=== PATIENT | female | born 1945 | race Caucasian/White ===

== ENCOUNTER 2016-11-20 08:07 | Day surgery (SDC) | payer MEDICARE, BC ==
[~2016-11-20] VITALS: Ht 157.5 cm; Wt 53.5 kg
[~2016-11-20 08:07] MED LIST: AMBIEN 10MG10 MG PO; COZAAR100 MG PO; DALIRESP500 MCG PO; INDERAL LA120 MG PO; K-DUR 10 MEQ T10 MEQ PO; OXYGEN; PREDNISONE10 MG PO; PROAIR HFA0.09 MG/AC IH; PROPRANOLOL ER PO; RT ADVAIR 228 DISKUS IH; SPIRIVA RE2.5 MCG/Ac IH; TOPAMAX 25MG25 M1 PO
[2016-11-20 09:12] VITALS: BP 118/71; PULSE 100; TEMP 98.4
[2016-11-20 10:15] VITALS: BP 124/64; PULSE 92; TEMP 98.3
[2016-11-20] MEDS ORDERED: DIFLUCAN 100MG100 MG PO (10:29)
[2016-11-20 10:30] VITALS: BP 138/66; PULSE 91
[2016-11-20 10:45] VITALS: BP 129/68; PULSE 88
== END 2016-11-20 11:00 | disposition home or self-care (01) ==
LOC: SDCO 08:07
DX: R06.02 Shortness of breath (principal); R09.89 Other specified symptoms and signs involving the circulatory and respiratory systems; R05 Cough; J44.1 Chronic obstructive pulmonary disease with (acute) exacerbation; I10 Essential (primary) hypertension; F17.200 Nicotine dependence, unspecified, uncomplicated
CPT/HCPCS: J2704

== ENCOUNTER → 2018-08-24 | Outpatient (CLI) | payer MEDICARE, BC ==
[~2018-08-24] MED LIST changes: +DIFLUCAN 100MG100 MG PO
== END ==
LOC: COL.RAD 09:32
DX: R19.00 Intra-abdominal and pelvic swelling, mass and lump, unspecified site (principal)

== ENCOUNTER → 2018-09-30 | Outpatient (CLI) | payer MEDICARE, BC | LOC: COL.RAD 09-16 11:00 | DX: N94.9 Unspecified condition associated with female genital organs and menstrual cycle (principal); R19.07 Generalized intra-abdominal and pelvic swelling, mass and lump | CPT/HCPCS: Q9967 ==

== ENCOUNTER 2018-10-09 13:37 | Outpatient (CLI) | payer MEDICARE, BC ==
[2018-10-09] VITALS (12 sets, daily range): BP systolic 118–149; BP diastolic 49–78; PULSE 80–86
[~2018-10-09] VITALS: Ht 157.5 cm; Wt 48.0 kg
== END 2018-10-09 17:45 | disposition home or self-care (01) ==
LOC: EUO 13:37
DX: N32.1 Vesicointestinal fistula (principal)
CPT/HCPCS: J2250; J3010

== ENCOUNTER → 2018-10-16 | Outpatient (CLI) | payer MEDICARE, BC | LOC: COL.RAD 07:40 | DX: K57.20 Diverticulitis of large intestine with perforation and abscess without bleeding (principal); S22.080A Wedge compression fracture of T11-T12 vertebra, initial encounter for closed fracture; Z90.49 Acquired absence of other specified parts of digestive tract; Z96.89 Presence of other specified functional implants | CPT/HCPCS: Q9967 ==

== ENCOUNTER → 2018-11-03 | Outpatient (CLI) | payer MEDICARE, BC | LOC: COL.RAD 13:03 | DX: K57.20 Diverticulitis of large intestine with perforation and abscess without bleeding (principal); N32.1 Vesicointestinal fistula; Z87.81 Personal history of (healed) traumatic fracture; Z90.710 Acquired absence of both cervix and uterus; Z96.89 Presence of other specified functional implants | CPT/HCPCS: Q9967 ==

== ENCOUNTER 2019-03-02 09:24 | Outpatient (CLI) | payer MEDICARE, BC ==
[2019-03-02] VITALS (16 sets, daily range): BP systolic 144–176; BP diastolic 74–104; PULSE 56–72; TEMP 97.8
[~2019-03-02] VITALS: Ht 157.5 cm; Wt 48.6 kg
[~2019-03-02 09:24] MED LIST changes: +CEPHALEXIN500 M1 PO; +NORCO 325 MG-51 TAB PO
--- NOTE | 2019-03-02 10:16 | NUR ---
informed dr gan of pt's tremors and bp
--- NOTE | 2019-03-02 10:55 | NUR ---
PT BROUGHT INTO ROOM, PLACED ON TABLE AND MONITORING EQUIPMENT PLACED. IMAGES DONE. DR ROJAS HERE, TIME OUT DONE.
--- NOTE | 2019-03-02 11:05 | NUR ---
VERSED 0.5 MG AND FENTANYL 25 MCG GIVEN AT [address] ROJAS
--- NOTE | 2019-03-02 11:20 | NUR ---
PROCEDURE COMPLETED. SAMPLES PLACED INTO FORMALIN. PT UNHOOKED FROM MONITORING EQUIPMENT AND TRANSFERED TO CART.
--- NOTE | 2019-03-02 11:25 | NUR ---
Pt to EU 9 per cart s/p lung bx. Pt resting well, son at bedside.
--- NOTE | 2019-03-02 11:40 | NUR ---
Pt wears O2 at 2L per NC PRN at home. Pt O2 sat 85% on room air. O2 2L per NC placed on pt.
--- NOTE | 2019-03-02 14:00 | NUR ---
Pt has ambulated, voided and lina PO intake s n/v. PIV removed from L AC with catheter intact.
--- NOTE | 2019-03-02 14:05 | NUR ---
Pt discharged per w/c by nurse with son.
== END 2019-03-02 14:43 | disposition home or self-care (01) ==
LOC: COL.RAD 09:24
DX: R91.8 Other nonspecific abnormal finding of lung field (principal)

== ENCOUNTER 2019-10-05 11:28 | Inpatient (IN) | payer MEDICARE, BC ==
[~2019-10-05] VITALS: Ht 157.5 cm; Wt 52.0 kg
[2019-10-05 12:19] LABS: BASO # 0.1 (0.0-0.2); BASO % 0.7 % (0.0-2.0); EOS # 0.2 (0.0-0.7); EOS % 1.7 % (0-4.0); GRAN # 6.8 (1.4-6.5); GRAN % 70.8 % (42.2-75.2); HEMATOCRIT 44.2 % (37.0-47.0); HEMOGLOBIN 14.1 g/dl (12.5-16.0); LYMPH # 1.8 (1.2-3.4); LYMPH % 18.3 % (20.0-51.0); MEAN CELL VOLUME 101 fl (80.0-100.0); MEAN CORPUSCULAR HEMOGLOBIN 32 pg (27.0-31.0); MEAN CORPUSCULAR HGB CONC 32 g/dl (33.0-37.0); MEAN PLATELET VOLUME 8.6 fl (7.4-10.4); MONO # 0.8 (0.1-0.6); MONO % 8.1 % (1.7-9.3); PLATELET COUNT 250 K/mm3 (130-400); RED BLOOD COUNT 4.39 M/mm3 (4.10-5.30); REDCELL DISTRIBUTION WIDTH-CV 15.9 % (11.5-14.5)
[2019-10-05 12:30] LABS: INR 0.9 (0.8-3.0); PROTHROMBIN TIME 10.4 SECONDS (9.7-12.8)
[2019-10-05 12:34] LABS: ALANINE AMINOTRANSFERASE 12 U/L (9-52); ALBUMIN 4.1 gm/dL (3.5-5.0); ALKALINE PHOSPHATASE 103 U/L (50-136); ANION GAP 10 mmol/L (7-16); AST,SGOT 28 U/L (15-37); BILIRUBIN,TOTAL 0.5 mg/dL (0.0-1.0); BLOOD UREA NITROGEN 17 mg/dL (7-17); CARBON DIOXIDE 30 mmol/L (22-30); CHLORIDE 100 mmol/L (98-107); CREATININE, serum 0.81 (0.52-1.25); GLUCOSE 96 mg/dL (74-106); POTASSIUM 4.2 mmol/L (3.4-5.0); SODIUM 140 mmol/L (137-145); TOTAL PROTEIN 7.7 gm/dL (6.4-8.2)
[2019-10-05 12:45] LABS: TROPONIN-I < 0.012 ng/mL (0.000-0.035)
[2019-10-05 13:24] LABS: COLLECTION METHOD CLEAN CATCH
[2019-10-05 13:30] LABS: PH 7 (5-8); SQUAMOUS EPITHELIAL 0-2 /hpf; URINE APPEARANCE Clear; URINE BACTERIA None Seen /hpf; URINE BILIRUBIN Negative (NEGATIVE); URINE BLOOD Negative (NEGATIVE); URINE COLOR Straw; URINE GLUCOSE Negative (NEGATIVE); URINE KETONE Negative (NEGATIVE); URINE LEUKOCYTE ESTERASE Trace (NEGATIVE); URINE NITRATE Negative (NEGATIVE); URINE PROTEIN(semi-quant) Negative (NEGATIVE); URINE RBC 0-2 /hpf; URINE UROBILINOGEN Negative (NEGATIVE)
--- NOTE | 2019-10-05 15:16 | NUR ---
barn worker met with patient and her granddaughter, Miriam #[phone], in the emergency room and provided options for life alerts. Patient lives alone and has not utilized any outside agency for assistance. Patient states that her son works in [employer] and that her support person, to discuss discharge planning, is Miriam. Case management will follow and meet with patient and assist with securing a safe discharge plan.
[2019-10-05] MEDS ORDERED: MULTI VITAMINS1 TAB PO (18:01)
[2019-10-05 18:17] VITALS: BP 159/80; PULSE 65; TEMP 97.7
[2019-10-05 18:18] VITALS: BP 159/80; PULSE 65; TEMP 97.7
--- NOTE | 2019-10-05 19:14 | NUR ---
Patient resting in bed. at the bedside. Denies pain and discomfort. Reporting some dizziness. Nursing staff instructed patient to call for assistance with ambulation. VSS. IV CDI. No further needs expressed from patient. Call light within reach
[2019-10-05 20:18] VITALS: BP 115/55; PULSE 99; TEMP 98.1
[2019-10-05 20:45] VITALS: BP 115/64
--- NOTE | 2019-10-05 20:45 | NUR ---
Resting in bed. Assessment complete. Lungs diminished throughout. Heart sounds normal. Bowels active. Pulses strong throughout. Colostomy in place. Patient request to change appliance later this evening. Supplies provided. Denies pain at this time. INT left forearm flushed without complications. Patient blood pressure 115/60, previous blood pressure at 1818 159/80. Holding Cozaar 100mg and will reassess blood pressure at midnight. Patient aware. Denies needs at this time. Call light in reach.
--- NOTE | 2019-10-05 22:15 | NUR ---
Up to restroom and returned to bed. Denies other needs at this time.
[2019-10-05 23:18] VITALS: BP 111/57; PULSE 78; TEMP 98.1
--- NOTE | 2019-10-06 | NUR ---
Resting in bed. Denies needs at this time. Call light in reach.
--- NOTE | 2019-10-06 04:29 | NUR ---
Resting in bed. Denies needs. Call light in reach.
[2019-10-06 05:16] VITALS: BP 154/93; PULSE 69; TEMP 97.6
--- NOTE | 2019-10-06 05:41 | NUR ---
Patient had uneventful night. Resting in bed this AM. Denies needs.
--- NOTE | 2019-10-06 06:43 | NUR ---
Report given to DILMA Gray
[2019-10-06 07:51] VITALS: BP 139/76; PULSE 71; TEMP 97.7
[2019-10-06] MEDS ORDERED: NORVASC 5MG5 MG/TAB PO (10:17)
--- NOTE | 2019-10-06 10:27 | NUR ---
JAK attended clinical rounds with the team. The patient is to discharge home today, 10/06. JAK met with the patient and the patient's granddaughter, Miriam to discuss a discharge plan. The patient lives alone by Janachristy Sosa conteh. The patient's PCP is Dr. Holland and patient receives medications from [facility] with no difficulties. The patient has a follow-up with Dr. Holland on Friday. The patient does not have advanced directives in the EMR but reports they are completed and designate her son Oskar Quezada. The patient is to return home with Miriam providing transportation. There are no additional needs at this time.
--- NOTE | 2019-10-06 11:10 | NUR ---
Initial visit; Patient and her Grand-daughter thanked Director Talent for looking in on her and offering encouragement and God's blessings
--- NOTE | 2019-10-06 12:04 | NUR ---
PATIENT DC TO HOME ACCOMPANIED BY DAUGHTER VIA PRIVATE VEHICLE @ 1605. PRINTED DC INSTRUCTIONS TO INCLUDE MEDICATIONS, F/U, AND DIAGNOSIS REVIEWED WITH PATIENT. NO QUESTIONS OR CONCERNS AFTER REVIEW.
== END 2019-10-06 11:12 | disposition home or self-care (01) | DRG 305 ==
LOC: COL.ER 11:28 → MEDICAL 15:50
PROVIDERS: Emergency Medicine; ADMIT Student in an Organized Health Care Education/Training Program
DX: I16.0 Hypertensive urgency (principal); I10 Essential (primary) hypertension; F41.1 Generalized anxiety disorder; J44.9 Chronic obstructive pulmonary disease, unspecified; M81.0 Age-related osteoporosis without current pathological fracture; R91.8 Other nonspecific abnormal finding of lung field; J31.0 Chronic rhinitis; H90.5 Unspecified sensorineural hearing loss; H35.30 Unspecified macular degeneration; R42 Dizziness and giddiness; Z98.51 Tubal ligation status; Z90.49 Acquired absence of other specified parts of digestive tract; Z79.51 Long term (current) use of inhaled steroids; Z87.891 Personal history of nicotine dependence
CPT/HCPCS: 99222-AI; 99239; J1650; J7030

== ENCOUNTER 2024-08-15 16:23 | Emergency (ER) | payer MEDICARE, BC ==
[~2024-08-15 16:23] MED LIST changes: +AMOXICILLIN 8751 TAB PO; +ASPIRIN 81M81 MG/TA2 PO; +ATIVAN 0.50.5 MG/TAB PO; +CEFTIN500 MG PO; +LASIX 20MG TABL20 MG PO; +LIPITOR20 MG PO; +MULTIVITAMIN200 MCG PO; +NAPROSYN25 MG/ML PO; +NORVASC 5MG5 MG/TAB PO; +NORVASC2.5 MG PO; +NYSTATIN OR100 MU/ML PO; +PLAVIX 75MG TAB75 MG PO; +ROXICODONE 55 MG/TAB PO; +SPIRIVA RE2.5 MCG/Ac PO; +VITAMIND3 5000 PO; +WIXELA 100-501 EACH INH
[2024-08-15 17:00] LABS: BASO # 0.1 K/mm3 (0.0-0.2); BASO % 0.3 % (0.0-2.0); EOS % 0.1 % (0.0-4.0); GRAN # 14.9 K/mm3 (1.4-6.5); GRAN % 88.1 % (42.2-75.2); HEMATOCRIT 43.1 % (37.0-47.0); LYMPH # 1.3 K/mm3 (1.2-3.4); LYMPH % 7.5 % (20.0-51.0); MEAN CELL VOLUME 96 fl (80.0-100.0); MEAN CORPUSCULAR HEMOGLOBIN 31 pg (27-31); MEAN CORPUSCULAR HGB CONC 33 g/dl (33.0-37.0); MEAN PLATELET VOLUME 9.3 fl (7.4-10.4); MONO # 0.6 K/mm3 (0.1-0.6); MONO % 3.6 % (1.7-9.3); PLATELET COUNT 402 K/mm3 (130-400); RED BLOOD COUNT 4.51 M/mm3 (4.10-5.30); REDCELL DISTRIBUTION WIDTH-CV 13.3 % (11.5-14.5)
[2024-08-15 17:14] LABS: ALBUMIN 3.8 g/dL (3.4-4.8); BILIRUBIN,TOTAL 0.5 mg/dL (0.2-1.2); CREATININE, serum 1.38 mg/dL (0.57-1.11); MAGNESIUM 1.7 mg/dL (1.6-2.6); TOTAL PROTEIN 8.3 g/dl (6.2-8.1)
[2024-08-15 17:21] LABS: TROPONIN-I 0.616 ng/mL (0.00-0.033)
[2024-08-15 17:22] LABS: COLLECTION METHOD CLEAN CATCH
[2024-08-15 17:30] LABS: PH 7.5 (5.0-8.5); URINE APPEARANCE CLEAR (CLEAR/HAZY); URINE BLOOD 2+ (NEGATIVE); URINE COLOR YELLOW (YELLOW); URINE GLUCOSE 1+ (NEGATIVE); URINE KETONE TRACE (NEGATIVE); URINE NITRATE NEGATIVE (NEGATIVE); URINE PROTEIN(semi-quant) 3+ (NEGATIVE); URINE UROBILINOGEN 0.2 E.U/dL (0.2-1.0)
[2024-08-15] MEDS ORDERED: Iohexol 300 - 100 ML VIAL IV ONE (17:45)
[2024-08-15] MEDS ORDERED: NS 100 ML IV SCH (17:45)
[2024-08-15] MEDS ORDERED: NS 1,000 ML IV ONE (18:00)
[2024-08-15] MEDS ORDERED: cefTRIAXone 1 G in Water For Injection,Sterile 10 ML IV ONE (18:00)
[2024-08-15 18:37] VITALS: TEMP 98.2
[2024-08-15 21:29] VITALS: BP 138/86; PULSE 96
== END 2024-08-15 21:41 | disposition short-term general hospital (02) ==
LOC: COL.ER 16:23
PROVIDERS: Emergency Medicine
DX: I61.4 Nontraumatic intracerebral hemorrhage in cerebellum (principal); Z85.71 Personal history of Hodgkin lymphoma
CPT/HCPCS: A4314; J0696; J7030; Q9967